=== PATIENT | male | born 1955 | race Caucasian/White ===

== ENCOUNTER 2021-05-05 19:02 | Emergency (ER) | payer OTHER ==
[~2021-05-05] VITALS: Ht 170.1 cm; Wt 76.2 kg
[2021-05-05 19:46] LABS: HEMATOCRIT 27.1 % (42.0-52.0); MEAN CELL VOLUME 87.1 fl (80.0-94.0); MEAN CORPUSCULAR HGB CONC 32.1 g/dl (33.0-37.0); MEAN PLATELET VOLUME 9.7 fl (9.6-12.3); PLATELET COUNT AUTOMATED 874 10*3/uL (130-400); RED BLOOD COUNT 3.11 10*6/uL (4.50-5.90); RED CELL DISTRI WIDTH 14.1 % (0-14.5); WHITE BLOOD COUNT 19.6 10*3/uL (4.8-10.8)
[2021-05-05 19:47] LABS: MANUAL DIFF REFLEX YES
[2021-05-05 20:03] LABS: ALKALINE PHOSPHATASE 149 U/L (45-117); BUN 13 mg/dl (7-24); CHLORIDE 95 mmol/L (98-107); LIPASE 122 U/L (73-393); POTASSIUM 4.2 mmol/L (3.5-5.1); SGOT/AST 60 IU/L (3-35); SGPT/ALT 53 U/L (12-78); SODIUM 134 mmol/L (136-145); TOTAL PROTEIN 6.9 gm/dL (6.4-8.2)
[2021-05-05 20:26] LABS: ATYPICAL LYMPHS 5 % (0-0); BASOPHILS 2 % (0-1); PLATELET SUFFICIENCY HIGH (NORMAL); TOTAL CELLS COUNTED 100 #CELLS
[2021-05-05 20:27] LABS: MICROCYTOSIS SLIGHT; TARGET CELLS FEW
[2021-05-05 20:28] LABS: OVALOCYTES FEW
[2021-05-05 20:40] LABS: BILIRUBIN Negative (Negative); BLOOD Negative (Negative); CLARITY Cloudy (Clear); COLOR Yellow (Yellow); GLUCOSE Negative (Negative); KETONE Negative (Negative); LEUKO ESTERASE 2+ (Negative); NITRITE Negative (Negative); SPECIFIC GRAVITY 1.015 (1.001-1.030); UROBILINOGEN 0.2 E.U./dl (0.0-1.0)
[2021-05-05 21:11] LABS: BACTERIA 1+; RBC 0-2 rbc/hpf (0-2); WBC 51-100 wbc/hpf (0-5)
== END 2021-05-06 18:30 | disposition short-term general hospital (02) ==
LOC: ED 19:02
PROVIDERS: Physician Assistant
DX: J18.9 Pneumonia, unspecified organism (principal); N39.0 Urinary tract infection, site not specified